=== PATIENT | male | born 1995 | race Caucasian/White ===

== ENCOUNTER 2016-05-28 11:12 | Emergency (ER) | payer MEDICAID ==
[2016-05-28 11:17] VITALS: RESP 16
--- NOTE | 2016-05-28 11:41 | EDPHY ---
H & P Stated Complaint: phlem fatigue +SOB HPI/ROS: CHIEF COMPLAINT: Shortness of breath HISTORY OF PRESENT ILLNESS: he reports 3-4 months of intermittent shortness of breath. There is no chest pain with this. These are unpredictable episodes. There mild to moderate. They are not worse with exertion. They happen randomly. No fever or chills. No cough or congestion for the most part, occasionally does have some phlegm that he coughed up. No abdominal pain. No urinary complaints. No headache or dizziness. No neck pain or stiffness. No recent travel or surgery. No history of venous thrombolic event. No lower extremity erythema, edema or pain. No other associated complaints or modifying factors REVIEW OF SYSTEMS: Ten systems reviewed and are negative unless otherwise noted in the HPI EXAMINATION General Appearance: Alert, no distress Head: normocephalic, atraumatic Eyes: Pupils equal and round, no conjunctival pallor or injection ENT, Mouth: Mucous membranes moist Neck: Normal inspection, supple, non-tender Respiratory: Lungs are clear to auscultation. no wheezing, rhonchi or crackles. Cardiovascular: Regular rate and rhythm . No murmur. Gastrointestinal: Abdomen is soft and nontender . No tympany rigidity. No CVA tenderness Neurological: A&O, nonfocal, normal gait Skin: Warm and dry, [id number] area ringworm to left temporal region Extremities: Nontender, no pedal edema Psychiatric: Mood and affect normal DIFFERENTIAL DIAGNOSES: Including but not limited to Dyspnea, pneumonia, mass, bronchitis, MDM: 11:40 a.m. shortness of breath without any chest pain of any kind. This has been present for 2-3 months. No fever or chills. No cough or congestion. No recent travel or surgery. No history of venous thrombolic event or signs or symptoms of such. Vital signs are were perfectly within normal limits. Chest x-ray has been ordered. 12:50 p.m. Radiologist has read this as consistent with possible bronchitis. I discussed this with the patient and offered him a short course of steroids for both therapeutic and diagnostic purposes. He is comfortable this plan. Discharged home with that and topical cream for the ringworm on the left side of the face. Follow up with primary care physician that we will provide for him. He has had no chest pain of any kind during the few months of these symptoms. He has no venous thromboembolic risk factors or evidence of examination. Did offer a D- dimer versus CT scan to further delineate, he has declined. No clinical suspicion for PE at this time. Return to the ER for any chest pain of any kind. SUPERVISION:This patient was independently evaluated without the aide of supervising physician. Source: Patient Exam Limitations: No limitations - Personal History Current Tetanus/Diphtheria Vaccine: Yes Current Tetanus Diphtheria and Acellular Pertussis (TDAP): Yes - Medical/Surgical History Hx Asthma: No Hx Chronic Respiratory Disease: No Hx Diabetes: No Hx Cardiac Disease: No Hx Renal Disease: No Hx Cirrhosis: No Hx Alcoholism: No Hx HIV/AIDS: No Hx Splenectomy or Spleen Trauma: No - Social History Smoking Status: Never smoked Constitutional: Initial Vital Signs Temperature (C) 98.2 F 05/28/16 11:14 Heart Rate 96 05/28/16 11:14 Respiratory Rate 16 05/28/16 11:14 Blood Pressure 126/90 H 05/28/16 11:14 O2 Sat (%) 98 05/28/16 11:14 O2 Delivery Mode Room Air Allergies/Adverse Reactions: "spicy stuff" Allergy (Uncoded 02/25/12 23:59) Home Medications: Medication Instructions Recorded Denies 02/25/12 Terbinafine [Lamisil At] 12 gm TP BID #1 gel..gm. 05/28/16 predniSONE 60 mg PO DAILY #15 tab 05/28/16 Departure - Departure Disposition: Home, Routine, Self-Care Clinical Impression: Bronchitis, Tinea Dyspnea Qualifiers: Qualifier Code: (R06.00) Dyspnea, unspecified Condition: Good Instructions: Tinea Corporis (ED), Chronic Bronchitis (ED) Additional Instructions: follow-up with primary care physician for further care. Return to the ER for any chest pain of any kind. Return to the ER for lower extremity erythema, edema or pain. Referrals: NONE *PRIMARY CARE P,. [Primary Care Provider] - As per Instructions Prescriptions: Terbinafine [Lamisil At] 12 gm TP BID #1 gel..gm. predniSONE 60 mg PO DAILY #15 tab
--- NOTE | 2016-05-28 12:42 | DX ---
PA and lateral chest. Clinical History: Cough x6 months. Dyspnea. Comparison Study: January 14, 2015. Findings: The lungs are clear. No pleural disease identified. Heart size is normal. Mild central bronchial wall thickening is compatible with mild bronchitis.. Impression: Mild central bronchitis, otherwise negative.
[2016-05-28 13:09] VITALS: BP 125/76; PULSE 78; TEMP 97.5; O2SAT 97
== END 2016-05-28 13:09 | disposition home or self-care (01) ==
DX: J40 Bronchitis, not specified as acute or chronic (principal); B35.4 Tinea corporis